=== PATIENT | male | born 1945 | race Caucasian/White ===

== ENCOUNTER 2021-06-16 01:18 | Outpatient (CLI) | payer MEDICARE, SELFPAY ==
[2021-06-16 11:39] LABS: Source Nasal/Nares
[2021-06-16 13:51] LABS: COVID-19 PCR Negative (Negative)
== END 2021-06-16 01:19 | disposition home or self-care (01) ==
LOC: LBO 01:18
PROVIDERS: Visit Provider Ophthalmology
DX: Z20.822 Contact with and (suspected) exposure to COVID-19 (principal); Z01.818 Encounter for other preprocedural examination
CPT/HCPCS: 87635

== ENCOUNTER 2021-06-19 07:14 | Day surgery (SDC) | payer MEDICARE, SELFPAY ==
--- NOTE | 2021-06-16 13:45 | NUR.NOTE ---
x2 voicemails left for patient with 0730 arrival time and NPO instructions, unable to confirm with patient. Office aware.Nursing Note:
[2021-06-19 07:56] VITALS: BP 144/64; PULSE 54; RESP 16; TEMP 36.2; O2SAT 97
[2021-06-19] MEDS: Tropicam./Phenyleph. (1/2.5%) 5 ML BTL OD ×3 (07:56→08:14)
--- NOTE | 2021-06-19 08:25 | W.ANESPRE ---
General Info Date of Service Date Performed: 06/19/21 Height: 5 ft 10 in Weight: 97 kg Body Mass Index (BMI): 30.7 Surgical Procedure: Operation Date: 06/19/21 09:10 Proposed Procedures Side Surgeon p Cataract Extraction with IOL Implant Right Ian Little MD Meds Allergies and Home Medications Allergies Allergy/AdvReac Type Severity Reaction Status Date / Time No Known Allergies Allergy Unverified 06/19/21 08:05 Home Medication Medication Instructions Recorded acetaminophen 500 mg PO DIRECTED 06/14/21 amlodipine 10 mg PO DAILY 06/14/21 atorvastatin 80 mg PO DAILY 06/14/21 clopidogrel 75 mg PO DAILY 06/14/21 fosinopril 20 mg PO DAILY 06/14/21 ibuprofen 400 mg PO TID 06/14/21 metoprolol succinate 200 mg PO DAILY 06/14/21 [id number]-[id number]-[id number] 1 tab PO DAILY 06/14/21 [Centrum Silver] nitroglycerin 0.4 mg SUBLINGUAL DIRECTED 06/14/21 pantoprazole 40 mg PO DAILY 06/14/21 Current Visit Medications: Current Medications Generic Name Dose Route Start Last Admin Trade Name Freq PRN Reason Stop Dose Admin Acetaminophen 1,000 mg 06/19/21 06:00 Acetaminophen 500 Mg Tab PO Q4H PRN PRN Miscellaneous Medication 0 ml 06/19/21 06:00 Prednisolone 1%, Moxifloxacin 0.5%, Nepafenac 0.1% 5ml Btl OD DIRECTED [facility] Miscellaneous Medication 0 ml 06/19/21 06:00 06/19/21 08:14 Tropicam./Phenyleph. (1/2.5%) 5 Ml Btl OD 1 drp DIRECTED [facility] Administration Tetracaine HCl 0 ml 06/19/21 06:00 Tetracaine 0.5% 4 Ml Btl OD DIRECTED [facility] PFSH Active Problems Active Problems: Problem Status Onset Code Nuclear sclerotic cataract of right eye H25.11 Medical History Medical History A-fib denies this Abdominal aortic aneurysm (AAA) without rupture 3.1 cm Per [facility] note last seen 12/23/2020 Dr. Xiong ...a small aortic aneurysm which is not expanding. I will see him back in 1 year with duplex evaluation Acid reflux Atherosclerosis of coronary artery without angina pectoris Cellulitis of lower limb Cerebral infarction Cholecystitis CKD (chronic kidney disease), stage III Edema of lower extremity Elevated cholesterol Enlarged prostate HTN (hypertension) jail current use of therapeutic drug Low back pain Osteoarthritis of knee Pain, joint, ankle, left Sprain of acromioclavicular ligament Transient cerebral ischemia 1994 Surgical History Surgical History (Updated 06/19/21 @ 08:05 by Tri Harrell) History of bilateral carotid endarterectomy 09/13/1999 History of laparoscopic cholecystectomy Hx of appendectomy Hx of cardiac catheterization 2000 & 2015 LAD to RCA stent Hx of colonoscopy Tobacco Smoking/Tobacco Use Status: Former Tobacco Use Alcohol Alcohol Intake: never Substance Use Substance use type: does not use Vital Signs and Lab Results Vital Signs Most Recent Vital Signs in EMR: Most Recent Vital Signs Temp Pulse Resp BP Pulse Ox 36.2 C L 54 L 16 144/64 H 97 06/19/21 07:56 06/19/21 07:56 06/19/21 07:56 06/19/21 07:56 06/19/21 07:56 Lab Results Blood Type / Crossmatch: No Data to Display Complete Blood Count: No Data to Display Complete Metabolic Panel: No Data to Display Liver Function Panel: No Data to Display Coagulation Panel: No Data to Display Cardiac Panel: No Data to Display Arterial Blood Gas: No Data to Display Venous Blood Gas: No Data to Display Pancreas Panel: No Data to Display Thyroid Panel: No Data to Display Infectious Disease: Coronavirus (COVID-19)(PCR) Negative (Negative) 06/16/21 08:31 06/16/21 Coronavirus 2019 Source Nasal/Nares 06/16/21 08:31 06/16/21 Blood Cultures: No Data to Display Toxicology Panel: No Data to Display Imaging and Studies Imaging and Studies Study information below may be from another EMR and interpreted by another provider. Please see original notes in EMR for more complete details. Other Study Summary:: Please see [facility] Cardiology note 12/26/20 Anesthesia Assessment and Plan Anesthesia History Personal History: No History of Anesthesia Complications Family History: No Family History of Anesthesia Complications Exercise Tolerance Exercise Tolerance: Metabolic Equivalents>4 Pertinent Negatives Pertinent Negatives: No Symptoms of GERD, No Major Cardiovascular Symptoms or Complaints, No Major Pulmonary Symptoms or Complaints and No History of CVA/TIA Cardiac & Pulmonary Exam Cardiac Exam: Normal S1/S2 Heart Sounds Pulmonary Exam: Clear Bilateral Breath Sounds Implantable Cardiac Device Does patient have a Pacemaker or an ICD?: No Airway Exam Known Difficult Airway: No Mallampati Class: 1 Mouth Opening: Normal (> 3cm) Thyromental Distance: Greater than 3 cm Neck Range of Motion: Full ROM Neck Circumference: Normal Teeth Condition: Normal Dentition and Removable Dentures/Plates Upper ASA Classification ASA Score: ASA 2 Emergency Case?: No NPO Status NPO Status: NPO Clears >2 hours, Solids >8 hours Anesthesia Plan Resuscitation Status: Full Code Anesthesia Technique: MAC Anesthesia Airway Planned: Natural Airway Monitors Used: Standard Monitors
[2021-06-19 08:48] VITALS: BMI 30.7
[2021-06-19] MEDS: Tetracaine 0.5% 4 ML BTL OD (08:57)
[2021-06-19] MEDS: Lidocaine 2% Jelly 6 ML SYR (08:58)
[2021-06-19] MEDS: Duovisc Viscoelastic System EACH 1 EACH (09:09)
[2021-06-19] MEDS: Balanced Salt Soln.-PLUS 500 ML BAG (09:09)
[2021-06-19] MEDS: Povidone-Iodine Ophth 30 ML BTL (09:11)
--- NOTE | 2021-06-19 09:30 | W.PM.DSUDISC ---
Discharge Plan Disposition Patient Disposition: HOME Condition: Good Discharge Details Attending Provider: Ian Little Primary Care Provider: Dheeraj Hernández Barnwell Meds and New Rx's Prescriptions: No Action atorvastatin 80 mg Tablet 80 mg PO DAILY RF: 0 metoprolol succinate 200 mg Tablet Extended Release 24 Hr 200 mg PO DAILY RF: 0 clopidogrel 75 mg Tablet 75 mg PO DAILY RF: 0 fosinopril 20 mg Tablet 20 mg PO DAILY RF: 0 acetaminophen 500 mg Tablet 500 mg PO DIRECTED RF: 0 amlodipine 10 mg Tablet 10 mg PO DAILY RF: 0 pantoprazole 40 mg Tablet,Delayed Release (Dr/Ec) 40 mg PO DAILY RF: 0 ibuprofen 400 mg Tablet 400 mg PO TID RF: 0 nitroglycerin 0.4 mg Tablet, Sublingual 0.4 mg sublingual DIRECTED RF: 0 Centrum Silver Tablet 1 tab PO DAILY RF: 0 Discharge Instructions Stand Alone Forms: Post-op Topical Cataract, Jayne Caruso (DSU) Discharge Orders Discharge Orders: Discharge Order (Routine); Ordered 06/19/21 Ordered By: Ian Little DS: Diagnosis Discharge Diagnosis (1) Nuclear sclerotic cataract of right eye: Status: Resolved
--- NOTE | 2021-06-19 09:31 | ROE_ITS ---
Date of service: 06/19/21 Time of Service: 09:31 Operative Note Operative Note DATE OF PROCEDURE: 06/19/21 PRE-OP DIAGNOSIS: Dense nuclear cataract, right eye Dense posterior subcapsular cataract, right eye Poor red reflex, right eye secondary to cataract POST-OP DIAGNOSIS: same PROCEDURE: Cataract extraction using phacoemulsification with intraocular lens implant, right eye Capsular staining with VisionBlue SURGEON: Ian Little ANESTHESIA TYPE: Local By Surgeon and MAC Refer to Anesthesia Record ESTIMATED BLOOD LOSS: 0 PATHOLOGY: none sent COMPLICATIONS: None Patient was transported to: same day Patient's condition: stable Implants: Hilton Clareon [id number] Indications: Progressive decreased vision due to cataract, right eye Procedure Description: CATARACT SURGERY OPERATIVE REPORT PREOPERATIVE DIAGNOSIS: Dense nuclear cataract, right eye Dense posterior subcapsular cataract, right eye Poor red reflex, right eye secondary to dense cataract POSTOPERATIVE DIAGNOSIS: Same OPERATION: Cataract extraction using phacoemulsification with posterior chamber intraocular lens implant, right eye. Capsular staining with VisionBlue IOL: IOL Presentation Specialist/Model: Hilton Clareon [id number] IOL Power: + 20.50 diopters IOL Serial Number: [id number] Optic Diameter: 6.0mm Haptic/Overall Diameter: 13.0mm PHACO INFO: Hilton Centurion Vision System with OZil and Active Fluidics Cumulative Dispersed Energy (CDE): 28.97 seconds SURGEON: Ian Little MD, KEKE ANESTHESIA: Monitored Anesthesia Care (MAC), with local sub-tenon's anesthetic infiltration COMPLICATIONS: None SPECIMENS: None INDICATIONS FOR PROCEDURE: The patient is a 76-year-old gentleman with history of progressive decreased vision in his right eye. He is noted to have a dense nuclear cataract with visual acuity of 20/300. The option of cataract surgery was offered to the patient and he wished to proceed. PROCEDURE: The correct surgical eye was identified and marked as the right eye and the pupil was dilated in the preoperative area using mydriatics and cycloplegics. The dilated pupil size was 5.0 mm. He elected to proceed without oral sedation. The patient was brought to the operating room where cardiopulmonary monitoring was instituted and surgical time-out was performed, confirming the correct operative eye and IOL power. Topical anesthesia was administered and ophthalmic povidone-iodine 5% was instilled into the conjunctival fornices. Lidocaine gel was applied to the cornea and the derrick-ocular area was prepped with Betadine 10% solution and draped in the usual sterile fashion for intraocular surgery, including an aperture drape. A Tegaderm transparent film dressing was cut in half and used to cover the lashes and lid margins. Care was taken to sequester the lashes and lid margins under the Tegaderm dressing. A lid speculum was placed between the lids of the operative eye and the Heavenly-Adrianne operating microscope was maneuvered into position. [place] scissors were then used to make a conjunctival buttonhole approximately 6mm posterior to the limbus in the inferonasal quadrant. Blunt dissection was carried out to expose bare sclera, and a blunt-tipped sub-tenon?s anesthesia cannula was introduced and passed posteriorly along the globe where non- preserved plain lidocaine was injected into posterior sub-Tenon?s space. A sideport knife was used to make a paracentesis port inferiortemporally. Intraocular phenylephrine/lidocaine was injected into the anterior chamber. There was injected into the anterior chamber, followed by VisionBlue which was painted over the lens capsule and then irrigated out with balanced salt solution. The anterior chamber was then filled with viscoelastic. Viscoat was used to protect the corneal endothelium. A 2.4mm keratome knife was used to create a half-thickness groove at the limbus and then to construct a three-plane near-clear corneal tunnel extending 2.0mm into clear cornea in the superiortemporal position. . A flap was raised on the anterior capsule and capsulorhexis forceps were used to complete a continuous curvilinear capsulorhexis of 5.0 mm. The capsule was noted to be quite thin. Balanced salt solution was then used to perform cortical cleaving hydrodissection and nuclear hydrodelineation until the lens could be freely rotated within the capsular bag. The lens nucleus was then disassembled and removed within the capsular bag and iris plane using phacoemulsification. Residual cortical material was removed using the I/A handpiece. The posterior capsule was carefully polished to remove as much residual lens epithelial cells as safely possible. The capsular bag was then inflated and the anterior chamber deepened with viscoelastic. The lens implant described above was inserted into the capsular bag using the Hilton Autonome Injector. A Kuglen hook was used to dial the IOL into position. Residual viscoelastic was then removed first from posterior to the IOL, then from the anterior chamber using the I/A handpiece. The lens implant was noted to center nicely within the capsular bag. The incisions were stromally hydrated, and the anterior chamber was reformed using BSS. Then 0.5cc of moxifloxacin 1.0mg/ml were injected into the capsular bag and anterior chamber. The incisions were checked with a Weck spear and found to be secure. Several drops of ophthalmic povidone-iodine 5% were then applied to the eye followed by two drops of Imprimis combination prednisolone/moxifloxacin/nepafenac solution. The drapes were removed and a clear plastic protective eye shield was placed over the eye. The patient was then returned to Same Day Surgery in stable condition.
[2021-06-19 09:33] VITALS: BP 124/71; PULSE 62; RESP 18; TEMP 36.7; O2SAT 98
--- NOTE | 2021-06-19 09:33 | W.ANESPOSTOP ---
Postoperative Evaluation Date, Time and Location Date Performed: 06/19/21 Time Performed: 09:33 Patient Location: Day Surgery Unit Vital Signs Most Recent Imported Vital Signs: Most Recent Vital Signs Temp Pulse Resp BP Pulse Ox 36.2 C L 54 L 16 144/64 H 97 06/19/21 07:56 06/19/21 07:56 06/19/21 07:56 06/19/21 07:56 06/19/21 07:56 Most Recent Manually Entered Vital Signs: Adult Blood Pressure: 124/71 Heart Rate: 62 Respirations: 18 Oxygen Saturation (%): 98 Temperature (C): 36.3 C Pain Score (0-10 Scale): 0 Pain Score Most Recent Pain Score: Most Recent Pain Score Pain Level 0 06/19/21 07:56 Assessment Mental Status: Awake (Alert & Oriented to Patient Baseline) Airway and Respiratory Function: Patent airway with normal (patient baseline) respiratory exam Cardiovascular Function: Hemodynamically Stable Hydration Status: Adequately Hydrated Nausea & Vomiting: No Nausea or Vomiting Pain: Pt. Denies Any Pain Peripheral Nerve Block: Patient did not receive a nerve block
[2021-06-19 09:34] VITALS: BP 124/71; PULSE 62; RESP 18; TEMPC 36.3; O2SAT 98
== END 2021-06-19 09:55 | disposition home or self-care (01) ==
PROVIDERS: PCP Family Medicine; Visit Provider Ophthalmology
PROC: (CPT 66984; principal; 2021-06-19 09:00)
DX: H25.11 Age-related nuclear cataract, right eye (principal); N18.30 Chronic kidney disease, stage 3 unspecified; I25.10 Atherosclerotic heart disease of native coronary artery without angina pectoris; K21.9 Gastro-esophageal reflux disease without esophagitis; Z86.73 Personal history of transient ischemic attack (TIA), and cerebral infarction without residual deficits; I48.91 Unspecified atrial fibrillation
CPT/HCPCS: 66984; V2632

== ENCOUNTER 2021-06-30 01:04 | Outpatient (CLI) | payer MEDICARE, SELFPAY ==
[2021-06-30 13:06] LABS: Source Nasal/Nares
[2021-06-30 17:39] LABS: COVID-19 PCR Negative (Negative)
== END 2021-06-30 01:05 | disposition home or self-care (01) ==
LOC: LBO 01:04
PROVIDERS: PCP Family Medicine; Visit Provider Ophthalmology
DX: Z20.822 Contact with and (suspected) exposure to COVID-19 (principal)
CPT/HCPCS: 87635; U0005

== ENCOUNTER 2021-07-03 11:01 | Day surgery (SDC) | payer MEDICARE, SELFPAY ==
[2021-07-03] MEDS: Tropicam./Phenyleph. (1/2.5%) 5 ML BTL OS ×3 (11:43→11:59)
[2021-07-03 11:45] VITALS: BP 132/61; PULSE 56; RESP 16; TEMP 36.3; O2SAT 96
--- NOTE | 2021-07-03 11:57 | ANES.PREOP_ITS ---
General Info Date of Service Date Performed: 07/03/21 Height: 5 ft 10 in Weight: 97.2 kg Body Mass Index (BMI): 30.7 Surgical Procedure: Operation Date: 07/03/21 14:40 Proposed Procedure Side Surgeon p Cataract Extraction with IOL Implant Left Ian Little MD Meds Allergies and Home Medications Allergies Allergy/AdvReac Type Severity Reaction Status Date / Time No Known Allergies Allergy Unverified 07/03/21 11:37 Home Medication Medication Instructions Recorded acetaminophen 500 mg tablet 500 mg PO DIRECTED 06/14/21 amlodipine 10 mg tablet 10 mg PO DAILY 06/14/21 atorvastatin 80 mg tablet 80 mg PO DAILY 06/14/21 clopidogrel 75 mg tablet 75 mg PO DAILY 06/14/21 fosinopril 20 mg tablet 20 mg PO DAILY 06/14/21 ibuprofen 400 mg tablet 400 mg PO TID 06/14/21 metoprolol succinate 200 mg 200 mg PO DAILY 06/14/21 tablet,extended release 24 hr ttuqjvyjmqnw-iromrlsp-yjmqav tablet 1 tab PO DAILY 06/14/21 nitroglycerin 0.4 mg sublingual 0.4 mg SUBLINGUAL DIRECTED 06/14/21 tablet pantoprazole 40 mg tablet,delayed 40 mg PO DAILY 06/14/21 release Current Visit Medications: Current Medications Generic Name Dose Route Start Last Admin Trade Name Freq PRN Reason Stop Dose Admin Acetaminophen 1,000 mg 07/03/21 06:00 Acetaminophen 500 Mg Tab PO Q4H PRN PRN Miscellaneous Medication 0 ml 07/03/21 06:00 Prednisolone 1%, Moxifloxacin 0.5%, Nepafenac 0.1% 5ml Btl OS DIRECTED [facility] Miscellaneous Medication 0 ml 07/03/21 06:00 07/03/21 11:52 Tropicam./Phenyleph. (1/2.5%) 5 Ml Btl OS 1 drp DIRECTED [facility] Administration Tetracaine HCl 0 ml 07/03/21 06:00 Tetracaine 0.5% 4 Ml Btl OS DIRECTED [facility] PFSH Active Problems Active Problems: Problem Status Onset Code Nuclear sclerotic cataract of right eye H25.11 Medical History Medical History A-fib denies this Abdominal aortic aneurysm (AAA) without rupture 3.1 cm Per [facility] note last seen 12/23/2020 Dr. Xiong ...a small aortic aneurysm which is not expanding. I will see him back in 1 year with duplex evaluation Acid reflux Atherosclerosis of coronary artery without angina pectoris Cellulitis of lower limb Cerebral infarction Cholecystitis CKD (chronic kidney disease), stage III Edema of lower extremity Elevated cholesterol Enlarged prostate HTN (hypertension) longterm current use of therapeutic drug Low back pain Osteoarthritis of knee Pain, joint, ankle, left Sprain of acromioclavicular ligament Transient cerebral ischemia 1994 Surgical History Surgical History (Updated 07/03/21 @ 11:37 by Tri Harrell) History of bilateral carotid endarterectomy 09/13/1999 History of laparoscopic cholecystectomy Hx of appendectomy Hx of cardiac catheterization 2000 & 2015 LAD to RCA stent Hx of cataract surgery Hx of colonoscopy Tobacco Smoking/Tobacco Use Status: Former Tobacco Use Alcohol Alcohol Intake: never Substance Use Substance use type: does not use Vital Signs and Lab Results Vital Signs Most Recent Vital Signs in EMR: Most Recent Vital Signs Temp Pulse Resp BP Pulse Ox 36.3 C L 56 L 16 132/61 96 07/03/21 11:45 07/03/21 11:45 07/03/21 11:45 07/03/21 11:45 07/03/21 11:45 Lab Results Blood Type / Crossmatch: No Data to Display Complete Blood Count: No Data to Display Complete Metabolic Panel: No Data to Display Liver Function Panel: No Data to Display Coagulation Panel: No Data to Display Cardiac Panel: No Data to Display Arterial Blood Gas: No Data to Display Venous Blood Gas: No Data to Display Pancreas Panel: No Data to Display Thyroid Panel: No Data to Display Infectious Disease: Coronavirus (COVID-19)(PCR) Negative (Negative) 06/30/21 08:40 06/30/21 Coronavirus 2019 Source Nasal/Nares 06/30/21 08:40 06/30/21 Blood Cultures: No Data to Display Toxicology Panel: No Data to Display Imaging and Studies Imaging and Studies Study information below may be from another EMR and interpreted by another provider. Please see original notes in EMR for more complete details. Other Study Summary:: Please see [facility] Cardiology note 12/26/20 Anesthesia Assessment and Plan Anesthesia History Personal History: No History of Anesthesia Complications Family History: No Family History of Anesthesia Complications Exercise Tolerance Exercise Tolerance: Metabolic Equivalents>4 Pertinent Negatives Pertinent Negatives: No Symptoms of GERD Cardiac & Pulmonary Exam Cardiac Exam: Normal S1/S2 Heart Sounds Pulmonary Exam: Clear Bilateral Breath Sounds Implantable Cardiac Device Does patient have a Pacemaker or an ICD?: No Airway Exam Known Difficult Airway: No Mallampati Class: 1 Mouth Opening: Normal (> 3cm) Thyromental Distance: Greater than 3 cm Neck Range of Motion: Full ROM Neck Circumference: Normal Teeth Condition: Normal Dentition and Removable Dentures/Plates Upper ASA Classification ASA Score: ASA 3 Emergency Case?: No NPO Status NPO Status: NPO Clears >2 hours, Solids >8 hours Anesthesia Plan Resuscitation Status: Full Code Anesthesia Technique: MAC Anesthesia Airway Planned: Natural Airway Monitors Used: Standard Monitors
[2021-07-03 12:22] VITALS: BMI 30.7
[2021-07-03] MEDS: Tetracaine 0.5% 4 ML BTL OS (12:36)
[2021-07-03] MEDS: Povidone-Iodine Ophth 30 ML BTL (12:38)
[2021-07-03] MEDS: Lidocaine 2% Jelly 6 ML SYR (12:40)
[2021-07-03] MEDS: Duovisc Viscoelastic System EACH 1 EACH (12:43)
[2021-07-03] MEDS: Balanced Salt Soln.-PLUS 500 ML BAG (12:43)
[2021-07-03 13:05] VITALS: BP 144/71; PULSE 57; RESP 16; TEMP 36.8; O2SAT 96
--- NOTE | 2021-07-03 13:06 | W.PM.DSUDISC ---
Discharge Plan Disposition Patient Disposition: HOME Condition: Good Discharge Details Attending Provider: Ian Little Primary Care Provider: Dheeraj Hernández Home Meds and New Rx's Prescriptions: No Action atorvastatin 80 mg Tablet 80 mg PO DAILY 0RF metoprolol succinate 200 mg Tablet Extended Release 24 Hr 200 mg PO DAILY 0RF clopidogrel 75 mg Tablet 75 mg PO DAILY 0RF fosinopril 20 mg Tablet 20 mg PO DAILY 0RF acetaminophen 500 mg Tablet 500 mg PO DIRECTED 0RF amlodipine 10 mg Tablet 10 mg PO DAILY 0RF pantoprazole 40 mg Tablet,Delayed Release (Dr/Ec) 40 mg PO DAILY 0RF ibuprofen 400 mg Tablet 400 mg PO TID 0RF nitroglycerin 0.4 mg Tablet, Sublingual 0.4 mg sublingual DIRECTED 0RF Centrum Silver Tablet 1 tab PO DAILY 0RF Discharge Instructions Stand Alone Forms: Post-op Topical Cataract, Jayne Caruso (DSU) Discharge Orders Discharge Orders: Discharge Order (Routine); Ordered 07/03/21 Ordered By: Ian Little DS: Diagnosis Discharge Diagnosis (1) Nuclear sclerotic cataract of left eye: Status: Resolved
--- NOTE | 2021-07-03 13:08 | ROE_ITS ---
Date of service: 07/03/21 Time of Service: 13:08 Operative Note Operative Note DATE OF PROCEDURE: 07/03/21 PRE-OP DIAGNOSIS: Nuclear cataract, left eye POST-OP DIAGNOSIS: same PROCEDURE: Cataract extraction using phacoemulsification with intraocular lens implant, left eye SURGEON: Ian Little ANESTHESIA TYPE: Local By Surgeon and MAC Refer to Anesthesia Record PATHOLOGY: none sent COMPLICATIONS: None Patient was transported to: same day Patient's condition: stable Implants: Hilton [employer] [id number] Indications: Progressive decreased vision due to cataract, left eye Procedure Description: CATARACT SURGERY OPERATIVE REPORT PREOPERATIVE DIAGNOSIS: Nuclear cataract, left eye POSTOPERATIVE DIAGNOSIS: Same OPERATION: Cataract extraction using phacoemulsification with posterior chamber intraocular lens implant, left eye. IOL: IOL Groover And Striper Operator/Model: Hilton [employer]on [id number] IOL Power: + 20.0 diopters IOL Serial Number: [id number] Optic Diameter: 6.0mm Haptic/Overall Diameter: 13.0mm PHACO INFO: [employer] Vision System with OZil and Active Fluidics Cumulative Dispersed Energy (CDE): 7.32 seconds SURGEON: Ian Little MD, KEKE ANESTHESIA: Monitored Anesthesia Care (MAC), with local sub-tenon's anesthetic infiltration COMPLICATIONS: None SPECIMENS: None INDICATIONS FOR PROCEDURE: The patient is a 76-year-old gentleman with history of diminished visual acuity in his left eye secondary to the development of nuclear cataract. He has already undergone cataract surgery in the right eye and is doing well postoperatively. He now presents for cataract surgery in the left eye. PROCEDURE: The correct surgical eye was identified and marked as the left eye and the pupil was dilated in the preoperative area using mydriatics and cycloplegics. The dilated pupil size was 5.0 mm. He elected to proceed without oral sedation. The patient was brought to the operating room where cardiopulmonary monitoring was instituted and surgical time-out was performed, confirming the correct operative eye and IOL power. Topical anesthesia was administered and ophthalmic povidone-iodine 5% was instilled into the conjunctival fornices. Lidocaine gel was applied to the cornea and the derrick-ocular area was prepped with Betadine 10% solution and draped in the usual sterile fashion for intraocular surgery, including an aperture drape. A Tegaderm transparent film dressing was cut in half and used t o cover the lashes and lid margins. Care was taken to sequester the lashes and lid margins under the Tegaderm dressing. A lid speculum was placed between the lids of the operative eye and the [employer] operating microscope was maneuvered into position. [place] scissors were then used to make a conjunctival buttonhole approximately 6mm posterior to the limbus in the inferonasal quadrant. Blunt dissection was carried out to expose bare sclera, and a blunt-tipped sub-tenon?s anesthesia cannula was introduced and passed posteriorly along the globe where non- preserved plain lidocaine was injected into posterior sub-Tenon?s space. A sideport knife was used to make a paracentesis port superior/superiortemporally. Intraocular phenylephrine/lidocaine was injected into the anterior chamber. The anterior chamber was then filled with viscoelastic. A 2.4mm keratome knife was used to create a half-thickness groove at the limbus and then to construct a three-plane near-clear corneal tunnel extending 2.0mm into clear cornea in the temporal position. . A flap was raised on the anterior capsule and capsulorhexis forceps were used to complete a continuous curvilinear capsulorhexis of 5.0 mm. Balanced salt solution was then used to perform cortical cleaving hydrodissection and nuclear hydrodelineation until the lens could be freely rotated within the capsular bag. The lens nucleus was then disassembled and removed within the capsular bag and iris plane using phacoemulsification. Residual cortical material was removed using the 45-degree angled silicone I/A tip with 0.3mm port. The posterior capsule was carefully polished to remove as much residual lens epithelial cells as safely possible. The capsular bag was then inflated and the anterior chamber deepened with viscoelastic. The lens implant described above was inserted into the capsular bag using the [employer] Injector. A Kuglen hook was used to dial the IOL into position. Residual viscoelastic was then removed first from posterior to the IOL, then from the anterior chamber using the I/A handpiece. The lens implant was noted to center nicely within the capsular bag. The incisions were stromally hydrated, and the anterior chamber was reformed using BSS. Then 0.5cc of moxifloxacin 1.0mg/ml were injected into the capsular bag and anterior chamber. The incisions were checked with a Weck spear and found to be secure. Several drops of ophthalmic povidone-iodine 5% were then applied to the eye followed by two drops of Imprimis combination prednisolone/moxifloxacin/nepafenac solution. The drapes were removed and a clear plastic protective eye shield was placed over the eye. The patient was then returned to [facility] Day Surgery in stable condition.
--- NOTE | 2021-07-03 13:25 | W.ANESPOSTOP ---
Postoperative Evaluation Date, Time and Location Date Performed: 07/03/21 Time Performed: 13:26 Patient Location: Day Surgery Unit Vital Signs Most Recent Imported Vital Signs: Most Recent Vital Signs Temp Pulse Resp BP Pulse Ox 36.8 C 57 L 16 144/71 H 96 07/03/21 13:05 07/03/21 13:05 07/03/21 13:05 07/03/21 13:05 07/03/21 13:05 Pain Score Most Recent Pain Score: Most Recent Pain Score Pain Level 0 07/03/21 13:05 Assessment Mental Status: Awake (Alert & Oriented to Patient Baseline) Airway and Respiratory Function: Patent airway with normal (patient baseline) respiratory exam Cardiovascular Function: Hemodynamically Stable Hydration Status: Adequately Hydrated Nausea & Vomiting: No Nausea or Vomiting Pain: Pt. Denies Any Pain Peripheral Nerve Block: Patient did not receive a nerve block
== END 2021-07-03 13:22 | disposition home or self-care (01) ==
PROVIDERS: PCP Family Medicine; Visit Provider Ophthalmology
PROC: (CPT 66984; principal; 2021-07-03 14:30)
DX: H25.12 Age-related nuclear cataract, left eye (principal); N18.30 Chronic kidney disease, stage 3 unspecified; K21.9 Gastro-esophageal reflux disease without esophagitis
CPT/HCPCS: 66984; V2632